=== PATIENT | female | born 1940 | race Caucasian/White ===

== ENCOUNTER 2019-03-03 23:39 | Emergency (ER) | payer MEDICARE, MEDICAID ==
[~2019-03-03] VITALS: Ht 172.7 cm; Wt 68.0 kg
[~2019-03-03 23:39] MED LIST: AMLO10TA80; BENA40TA9 PO; DEXL60CA3 PO; FOLI-43 PO; FURO40TA5 PO; GLIP5TAB12 PO; INSLIS SQ; LEVO25TA7 PO; LEVVL SQ; METO-539 PO; MULT-1146 PO; OMEP20TA2 PO; RIVA20TA PO; SITA50TA3 PO; SUCR1ORA PO
[2019-03-04] MEDS ORDERED: SODIUM CHLORIDE 0.9% 1,000 ML IV ONE (00:02)
[2019-03-04] MEDS ORDERED: MORPHINE SULFATE 4 MG/ML CPJ (NOT FOR IM USE) IV STA (00:02)
[2019-03-04] MEDS ORDERED: ASPIRIN 325MG TABLET PO ONE (00:15)
[2019-03-04 00:33] LABS: BASOPHILS % 0.5 % (0.0-2.0); EOSINOPHILS % 0.3 % (0.0-5.0); HEMATOCRIT. 35.5 % (36.0-48.0); LYMPHOCYTES % 15.2 % (20.0-50.0); MEAN CORPUSCULAR HEMOGLOBIN 27.9 pg (28.0-32.0); MEAN PLATELET VOLUME 9.3 fl (7.4-10.4); MONOCYTES % 13.1 % (2.0-8.0); NEUTROPHILS % 70.9 % (40.0-76.0); PLATELET 156 x1000/uL (130-400); RED BLOOD CELL COUNT 4.33 mill/uL (4.2-5.4); RED CELL DISTRIBUTION WIDTH 13.7 % (11.6-14.6)
[2019-03-04 00:36] LABS: CHLORIDE 102 mEq/L (98-107)
[2019-03-04 00:40] LABS: PROTHROMBIN TIME 10.5 sec (9.6-11.0)
[2019-03-04 01:30] VITALS: BP 171/80
== END 2019-03-04 02:00 | disposition home or self-care (01) ==
LOC: ER 23:39
DX: I77.1 Stricture of artery (principal); E11.9 Type 2 diabetes mellitus without complications; I10 Essential (primary) hypertension; Z86.73 Personal history of transient ischemic attack (TIA), and cerebral infarction without residual deficits; Z79.4 Long term (current) use of insulin; Z79.899 Other long term (current) drug therapy
CPT/HCPCS: 36415; 71045; 80053; 82962; 83880; 84484; 85025; 85610; 85730; 93005; 93922; 93971; 96374; 99284; J2270; J7030